=== PATIENT | female | born 1935 | race Caucasian/White ===

== ENCOUNTER 2021-02-27 14:48 | Emergency (ER) | payer MEDICARE, OTHER, SELFPAY ==
[2021-02-27 14:50] VITALS: BP 157/57; PULSE 94; RESP 19; TEMP 37; O2SAT 96; BMI 26.4
--- NOTE | 2021-02-27 15:06 | XR_ITS ---
PROCEDURE: XR CHEST 2V CLINICAL HISTORY: SOB COMPARISON: No exams were available for comparison FINDINGS: The cardiomediastinal silhouette and pulmonary vascularity are within normal limits. The lungs are clear without infiltrates, suspicious nodules, or pleural effusions. No acute bony abnormalities. IMPRESSION: No acute findings. Dictated by: Tevin Valdivia MD 02/27/2021 16:54 Tevin Valdivia MD in [place] 02/27/2021 16:54
--- NOTE | 2021-02-27 15:23 | HMH.EDUTC ---
[facility] [place] Clinical Impression: Acute bronchitis Qualifiers: Bronchitis organism: unspecified organism Qualified Code(s): J20.9 - Acute bronchitis, unspecified Sinusitis Qualifiers: Sinusitis location: unspecified location Chronicity: acute Recurrence: non-recurrent Qualified Code(s): J01.90 - Acute sinusitis, unspecified Disposition: Home, Self-Care Condition on Discharge: Good Instructions: DI for Sinusitis, DI for Acute Bronchitis Additional Instructions: Drink plenty of fluids. Take tylenol or ibuprofen for pain or fever. Take the medications as directed. Follow up with your regular doctor. GO TO THE ER FOR ANY WORSENING SYMPTOMS Prescriptions: guaiFENesin [Mucinex 600mg tablet] 1 - 2 tab PO BIDP PRN #30 tab.er.12h PRN Reason: Congestion Transmission [facility] Benzonatate [Tessalon Perle 100mg Cap] 100 mg PO TIDP PRN #30 cap PRN Reason: Cough Transmission Status: [facility] Azithromycin [Z-Chele 250mg Tab*] 250 mg PO UD DOSE PK #6 tab Transmission Status: [facility] Referrals: Lupillo Boyce [Primary Care Provider] - Time of Disposition: 15:25 Medical Decision Making - Medical Records Medical records reviewed: No: I reviewed the patient's medical records. - Vince Inquiry Pt receiving controlled substance: No Vital Signs: 02/27/21 14:50 02/27/21 15:28 Temperature 98.6 F 98.6 F Temperature Source Oral Pulse Rate 94 H Pulse Rate [Right Brachial] 94 H Respiratory Rate 19 19 Blood Pressure 157/57 H Blood Pressure [Right Arm] 157/57 H Blood Pressure Mean [Right Arm] 90 Blood Pressure Source [Right Arm] Automatic Cuff Blood Pressure Position [Right Arm] Sitting 02 Sat by Pulse Oximetry 96 Oxygen Delivery Method Room Air [facility] [place] - General Stated complaint: cough, congestion Time Seen by Provider: 02/27/21 15:23 Mode of Arrival: Ambulatory Source of Information: Patient Limitations: No Limitations Description of Symptoms (Recalled from Triage Doc. by RN): PATIENT C/O PRODUCTIVE COUGH WITH WHEEZING SINCE THURSDAY. STATES SHE FEELS WORSE AT NIGHT. SHE SAYS SHE FELT LIKE SHE HAD A FEVER AT TIMES, BUT HAS NOT TAKEN HER TEMPERATURE HEENT Symptoms (Recalled from RN notes): No Resp Symptoms (Recalled from RN notes): Yes Skin Symptoms (Recalled from RN notes): No MS Symptoms (Recalled from RN notes): No Functional Status (Recalled from RN notes): WNL - History of Present Illness Provider Complaint: She states that for the past 3 days she has had sinus congestion and a cough. - Related Data Home Medications Medication Instructions Recorded Confirmed Losartan/Hydrochlorothiazide 1 each PO DAILY 02/27/21 02/27/21 [Losartan-Hctz 100-12.5 mg Tab] Pravastatin Sodium [Pravachol] 80 mg PO HS 02/27/21 02/27/21 Previous Rx's Medication Instructions Recorded Azithromycin [Z-Chele 250mg Tab*] 250 mg PO UD DOSE PK #6 tab 02/27/21 Benzonatate [Tessalon Perle 100mg 100 mg PO TIDP PRN #30 cap 02/27/21 Cap] guaiFENesin [Mucinex 600mg tablet] 1 - 2 tab PO BIDP PRN #30 02/27/21 tab.er.12h Allergies Allergy/AdvReac Type Severity Reaction Status Date / Time No Known Allergies Allergy Verified 02/27/21 15:16 - Worker's Comp Is this a Worker's Comp case?: No [facility] History - Hepatitis A Screen Drug use history?: No High risk sexual behaviors?: No History of sexually transmitted infection?: No Currently employed?: No Childcare worker?: No Do you have indoor plumbing?: Yes Do you have electricity?: Yes Attestation statement:: This patient has been screened for Hepatitis A risk factors. I have reviewed the patient's past medical history: Yes - Social History Alcohol Intake: never Occupational Status: other ROS Obtained: Yes All systems reviewed & no additional complaints - Constitutional Constitutional: Denies chills, Denies fever(s), Reports malaise - Integumentary/Br
[2021-02-27 15:28] VITALS: BP 157/57; PULSE 94; RESP 19; TEMP 37; O2SAT 96
== END 2021-02-27 15:30 | disposition home or self-care (01) ==
PROVIDERS: Emergency Provider Nurse Practitioner Family; PCP Family Medicine
DX: J20.9 Acute bronchitis, unspecified (principal); J01.90 Acute sinusitis, unspecified; E78.5 Hyperlipidemia, unspecified; I10 Essential (primary) hypertension; Z79.899 Other long term (current) drug therapy
CPT/HCPCS: G0463; 71046; 99202

== ENCOUNTER 2021-05-18 14:47 | Observation (INO) | payer MEDICARE, OTHER, SELFPAY ==
[2021-05-18] VITALS (9 sets, daily range): BP systolic 113–168; BP diastolic 71–92; PULSE 59–83; RESP 14–18; TEMP 36.8–36.9; O2SAT 94–97; BMI 25.8; BMI 26.1
--- NOTE | 2021-05-18 14:36 | ECG_ITS ---
APPROVED REPORT Exam: Resting ECG HR:87 bpm ECG Measurements Heart Rate 87 AXES NE 246 P 72 QRSd 98 QRS 66 QT 364 T 81 QTc 438 Conclusion Sinus rhythm with 1st degree AV block Anterior infarct, age undetermined Abnormal ECG Electronically signed by : David Rodriguez MD 05/19/2021 17:08:00
--- NOTE | 2021-05-18 14:49 | XR_ITS ---
PROCEDURE INFORMATION: Exam: XR Chest Exam date and time: 05/18/2021 2:49 PM Age: 85 years old Clinical indication: Pain; Chest pressure; Prior surgery; Surgery date: 6+ months; Surgery type: Mastectomy; Additional info: Chest pain TECHNIQUE: Imaging protocol: XR of the chest. Views: 1 view. COMPARISON: CR XR CHEST 2V 02/27/2021 3:05 PM FINDINGS: Lungs: The lungs are hyperinflated, consistent with underlying small airways disease. Atelectatic changes noted within both lung bases. Granulomatous density noted within the right upper lobe. Pleural spaces: There is no evidence of pneumothorax. There are no pleural effusions present. Heart/Mediastinum: Unremarkable. No cardiomegaly. Bones/joints: The thoracic spine demonstrates mild degenerative changes at multiple levels. IMPRESSION: 1. The lungs are hyperinflated, consistent with underlying small airways disease. 2. Atelectatic changes noted within both lung bases.
[2021-05-18 15:39] LABS: Basophils # 0.1 K/mm3 (0-0.2); Eosinophils # 0.1 K/mm3 (0.0-0.4); Eosinophils % 0.9 % (0.1-12.0); Hematocrit 46.5 % (37.0-47.0); Hemoglobin 15.4 g/dL (12.2-16.2); Lymphocytes # 1.6 K/mm3 (0.7-4.5); Lymphocytes % 24.3 % (10-50); Mean Corpuscular Hemoglobin 32.2 pg (27.0-31.2); Mean Corpuscular Volume 97.7 fl (81-99); Mean Platelet Volume 8.3 fl (7.4-10.4); Monocytes # 0.5 K/mm3 (0.1-1.0); Monocytes % 7.1 % (1.7-9.3); Neutrophils # 4.4 K/mm3 (1.8-7.8); Neutrophils % 66.7 % (37.0-80.0); Platelet Count 304 K/mm3 (142-424); Red Blood Count 4.76 M/mm3 (4.20-5.40); Red Cell Distribution Width 13.2 % (11.5-17.5); White Blood Count 6.6 K/mm3 (4.8-10.8)
[2021-05-18 15:48] LABS: Alanine Aminotransferase 26 U/L (12-78); Albumin Level 4.4 g/dl (3.5-5.0); Albumin/Globulin Ratio 1.2 (1.1-1.8); Alkaline Phosphatase 78 U/L (38-126); Anion Gap 14.6 mEq/L (5-15); Aspartate Amino Transferase 35 U/L (14-36); Bilirubin,Total 0.4 mg/dl (0.2-1.3); Blood Urea Nitrogen 12 mg/dl (7-17); Calcium 9.8 mg/dl (8.4-10.2); Carbon Dioxide 29 mmol/L (22.0-30.0); Chloride 101 mmol/L (98-107); Creatinine Clearance Estimated 49 mL/min (50-200); Estimated Glomerular Filt Rate 80 ml/min (>60); GFR (African American) 97 ML/MIN (>60); Globulin 3.7 g/dL (1.3-3.2); Glucose 113 mg/dl (74-100); Potassium 3.6 mmoL/L (3.5-5.1); Sodium 141 mmol/L (136-145); Total Protein,Serum 8.1 g/dl (6.3-8.2)
--- NOTE | 2021-05-18 15:59 | HMH.EDCP ---
ED Disposition Clinical Impression: Unstable angina pectoris Hypertension Qualifiers: Hypertension type: primary hypertension Qualified Code(s): I10 - Essential (primary) hypertension Disposition: Admitted as Observation Condition on Discharge: Good Referrals: Lupillo Boyce [Primary Care Provider] - - Critical Care Critical Care Time: No Attestation: On 05/18/21, the high probability of a clinically significant, sudden or life threatening deterioration of the following system(s) required my full and direct attention, intervention and personal management. The time I documented below is in addition to time spent performing reported procedures but includes the following listed in this critical care notation. Medical Decision Making - Medical Records Medical records reviewed: Yes: I reviewed the patient's medical records. - Vince Inquiry Pt receiving controlled substance: No Vital Signs: 05/18/21 15:30 05/18/21 16:00 05/18/21 16:30 Pulse Rate 82 83 72 Respiratory Rate 18 16 16 Blood Pressure 168/92 H 152/87 H 152/79 H Blood Pressure Mean 105 115 103 02 Sat by Pulse Oximetry 96 97 94 L 05/18/21 17:00 Pulse Rate 64 Respiratory Rate 16 Blood Pressure 141/75 H Blood Pressure Mean 97 02 Sat by Pulse Oximetry 96 - Lab Data Lab results reviewed: Yes: I reviewed the patient's lab results. Lab Results 05/18/21 14:56: WBC 6.6, RBC 4.76, Hgb 15.4, Hct 46.5, MCV 97.7, MCH 32.2 H, MCHC 33.0, RDW 13.2, Plt Count 304, MPV 8.3, Neut % (Auto) 66.7, Lymph % (Auto) 24.3, Jasper % (Auto) 7.1, Eos % (Auto) 0.9, Baso % (Auto) 1.0, Neut # (Auto) 4.4, Lymph # (Auto) 1.6, Jasper # (Auto) 0.5, Eos # (Auto) 0.1, Baso # (Auto) 0.1 05/18/21 14:56: Sodium 141, Potassium 3.6, Chloride 101, Carbon Dioxide 29, Anion Gap 14.6, BUN 12, Creatinine 0.70, Estimated Creat Clear 49, Estimated GFR 80, Est GFR ( Amer) 97, Glucose 113 H, Calcium 9.8, Total Bilirubin 0.4, AST 35, ALT 26, Alkaline Phosphatase 78, Troponin I 0.06 H, Total Protein 8.1, Albumin 4.4, Globulin 3.7 H, Albumin/Globulin Ratio 1.2 05/18/21 15:58: Urine Color Yellow, Urine Appearance Clear, Urine pH 7.0, Ur Specific [place] <= 1.005, Urine Protein Negative, Urine Glucose (UA) Negative, Urine Ketones Negative, Urine Blood Negative, Urine Nitrate Negative, Urine Bilirubin Negative, Urine Urobilinogen 0.2, Ur Leukocyte Esterase Negative, Urine RBC None, Urine WBC None, Ur Squamous Epith Cells 3-5, Urine Bacteria None Result diagrams: 05/18/21 14:56 05/18/21 14:56 Orders (Tests/Meds): ED MEDICATIONS Discontinued Medications Generic Name Dose Route Start Last Admin Trade Name Freq PRN Reason Stop Dose Admin Aspirin 324 mg 05/18/21 14:50 05/18/21 15:03 Aspirin 81mg Chewable Tablet PO 05/18/21 14:51 324 mg ONCE ONE Administration ORDERS Category Date Time Status Troponin I Q3H Lab 05/18/21 18:00 Ordered Troponin I Q3H Lab 05/18/21 21:00 Ordered - Radiology Data #1 Image(s): Chest Image Reviewed: Yes I have reviewed radiologist's interpretation Preliminary Findings: Normal/NAD - ECG Data Tracing #1 Normal Sinus Rhythm: Yes Ischemic changes: non-specific ST-T wave changes ECG compared to prior tracings: there are no prior tracings available for comparison - Physician Consults Physician Consulted: benjamin Reason -: Admission Medical Decision Narrative: pt with unstable angina and will need admit and card eval Chest Pain HPI - General Chief Complaint: Chest Pain Stated Complaint: CHEST PAIN Time Seen by Provider: 05/18/21 15:59 Mode of Arrival: Ambulatory Source of Information: Patient, Medical Record Limitations: No Limitations - History of Present Illness HPI narrative: new onset of ant chest pain/tightness which started yesterday and occurs with min activity but not at rest - has no known card disease but has htn MD complaint: chest pain indicative of cardiac Onset (ago): day(s) Duration: intermitt
[2021-05-18 16:00] LABS: Troponin I 0.06 ng/ml (0.00-0.034)
[2021-05-18 16:30] LABS: Microscopic, Urine URINE MICROSCOPIC (MICROSCOPIC)
[2021-05-18 16:33] LABS: Appearance,Urine CLEAR (Clear); Bilirubin,Urine Negative (Negative); Blood, Urine Negative (Negative); Color,Urine YELLOW (Yellow); Glucose,Urine (UA) Negative (Negative); Ketones,Urine Negative (Negative); Leukocyte Esterase,Urine Negative (Negative); Nitrate,Urine Negative (Negative); Protein,Urine Negative (Negative); Specific Gravity, Urine <= 1.005 (1.005-1.030); Urobilinogen,Urine 0.2 EU/dl (0.2)
[2021-05-18 18:11] LABS: Coronavirus 19, PCR Not Detected (NotDetected); Influenza A, PCR Not Detected (NotDetected); Influenza B, PCR Not Detected (NotDetected)
--- NOTE | 2021-05-18 18:59 | PC.NURSE ---
REPORT TO FLOOR
--- NOTE | 2021-05-18 19:51 | PC.NURSE ---
PT ARRIVED TO FLOOR VIA WW/C FROM ED W/STAFF AT 1950
[2021-05-18 19:54] LABS: Troponin I 0.08 ng/ml (0.00-0.034)
[2021-05-18 22:10] LABS: Troponin I 0.08 ng/ml (0.00-0.034)
[2021-05-19] VITALS (9 sets, daily range): BP systolic 112–148; BP diastolic 53–85; PULSE 50–76; RESP 17–18; TEMP 36.5–36.9; O2SAT 94–99; BMI 26.0
--- NOTE | 2021-05-19 04:03 | PC.NURSE ---
Patient is A&Ox4. She ambulates independently in her room. There is slight traceable edema to her bilateral lower extremities. She has had no complaints this shift. VSS, call light within reach, will continue to monitor.
[2021-05-19 06:56] LABS: Chloride 105 mmol/L (98-107); Potassium 4.2 mmoL/L (3.5-5.1); Sodium 142 mmol/L (136-145)
[2021-05-19 06:59] LABS: Anion Gap 11.2 mEq/L (5-15); Blood Urea Nitrogen 13 mg/dl (7-17); Carbon Dioxide 30 mmol/L (22.0-30.0); Creatinine Clearance Estimated 49 mL/min (50-200); Estimated Glomerular Filt Rate 80 ml/min (>60); GFR (African American) 97 ML/MIN (>60)
[2021-05-19 07:00] LABS: Calcium 9.5 mg/dl (8.4-10.2); Chol/HDL Ratio 2.9 (1-3.5); Cholesterol 192 mg/dl (140-200); Glucose 102 mg/dl (74-100); HDL Cholesterol 67 mg/dl (40-60); Triglycerides 78 mg/dl (30-150); VLDL Cholesterol 16 mg/dL (0-40)
[2021-05-19 07:04] LABS: Basophils # 0.1 K/mm3 (0-0.2); Basophils % 0.7 % (0.1-2.0); Eosinophils # 0.1 K/mm3 (0.0-0.4); Eosinophils % 0.9 % (0.1-12.0); Hematocrit 44.9 % (37.0-47.0); Hemoglobin 14.6 g/dL (12.2-16.2); Lymphocytes # 1.9 K/mm3 (0.7-4.5); Lymphocytes % 27.6 % (10-50); Mean Corpuscular HGB Conc 32.5 g/dL (31.8-35.4); Mean Corpuscular Hemoglobin 31.7 pg (27.0-31.2); Mean Corpuscular Volume 97.6 fl (81-99); Mean Platelet Volume 7.7 fl (7.4-10.4); Monocytes # 0.5 K/mm3 (0.1-1.0); Monocytes % 7.2 % (1.7-9.3); Neutrophils # 4.4 K/mm3 (1.8-7.8); Neutrophils % 63.5 % (37.0-80.0); Platelet Count 299 K/mm3 (142-424); Red Cell Distribution Width 13.2 % (11.5-17.5)
[2021-05-19 07:11] LABS: Direct LDL Cholesterol 92.13 mg/dL (100-129)
--- NOTE | 2021-05-19 08:12 | HMH.HP ---
*Admission Date: 05/18/21 *Chief complaint: Chest pressure *History of present illness: Ms. Davis is an 85-year-old white female with a history of hypertension and hyperlipidemia who presented to the emergency room yesterday with a 2-day history of anterior chest pressure radiating into her back associated with any physical activity. Her pain was relieved with rest. No associated shortness of breath or palpitations. She has no past history of heart disease. Work-up in the emergency room showed slightly elevated troponins with some ST changes in the anterior leads on her EKG. Dr. Ledezma was consulted from the ER and advised admission for observation with likely plans for heart cath tomorrow. Since admission she has had no further episodes of chest pain or pressure. [facility] History Medical History: Reports:: Cancer (Breast), Hyperlipidemia, Hypertension *Have you ever received a pneumonia vaccine?: Yes *Have you received a flu vaccine this season?: No Other Medical History: Reports: Cataracts, Glaucoma Laterality Cases: Left: Mastectomy Other Surgeries: Yes: Hysterectomy-Total - *Social History Last grade of school completed: High school graduate Smoking Status: Never smoker Alcohol Intake: never Substance Use Type: denies use *Occupational Status:: retired Household Members: none *Travel in the last 8 weeks: None Family Hx:: No significant family history Review of Systems - Constitutional Denies anorexia, Denies fatigue - Eyes Denies change in vision - ENT Denies difficulty swallowing, Denies nasal congestion - *Cardiovascular Reports leg swelling (Sometimes in the evening and goes away overnight), Reports other (See HPI) - *Respiratory Denies chest congestion, Denies cough, Denies shortness of breath - *Gastrointestinal Denies abdominal pain, Denies change in bowel habits - *Genitourinary Denies abnormal vaginal bleeding, Denies urinary incontinence - *Musculoskeletal Denies joint swelling, Denies muscle weakness - Integumentary/Breasts Denies hair loss, Denies change in skin color - *Neurologic Denies dizziness, Denies localized weakness, Denies headache(s) - Psychiatric Denies abnormal sleep pattern, Denies anxiety, Denies confusion, Denies depression - Endocrine Denies cold intolerance - Hematologic/Lymphatic Denies easy bruising - Allergic/Immunologic Denies seasonal runny nose Meds Home Medications Medication Instructions Recorded Confirmed Type Losartan/Hydrochlorothiazide 1 each PO DAILY 02/27/21 05/18/21 History [Losartan-Hctz 100-12.5 mg Tab] Pravastatin Sodium [Pravachol] 80 mg PO HS 02/27/21 05/18/21 History Aspirin [Aspirin 81mg chewable 81 mg PO DAILY 05/18/21 05/18/21 History tab] Timolol Maleate/Latanoprost/Pf 1 drp EYE-BOTH BID 05/18/21 05/18/21 History [Timolol 0.5%-Latanopros 0.005%] Allergies Allergy/AdvReac Type Severity Reaction Status Date / Time No Known Allergies Allergy Verified 02/27/21 15:16 Exam Vital signs and Labs for Last 24 Hours: Temp Pulse Resp BP Pulse Ox 98.0 F 76 17 115/68 96 05/19/21 04:00 05/19/21 04:00 05/19/21 04:00 05/19/21 04:00 05/19/21 00:00 Laboratory Results - last 24 hr 05/18/21 14:56: WBC 6.6, RBC 4.76, Hgb 15.4, Hct 46.5, MCV 97.7, MCH 32.2 H, MCHC 33.0, RDW 13.2, Plt Count 304, MPV 8.3, Neut % (Auto) 66.7, Lymph % (Auto) 24.3, Eagle % (Auto) 7.1, Eos % (Auto) 0.9, Baso % (Auto) 1.0, Neut # (Auto) 4.4, Lymph # (Auto) 1.6, Eagle # (Auto) 0.5, Eos # (Auto) 0.1, Baso # (Auto) 0.1 05/18/21 14:56: Sodium 141, Potassium 3.6, Chloride 101, Carbon Dioxide 29, Anion Gap 14.6, BUN 12, Creatinine 0.70, Estimated Creat Clear 49, Estimated GFR 80, Est GFR ( Amer) 97, Glucose 113 H, Calcium 9.8, Total Bilirubin 0.4, AST 35, ALT 26, Alkaline Phosphatase 78, Troponin I 0.06 H, Total Protein 8.1, Albumin 4.4, Globulin 3.7 H, Albumin/Globulin Ratio 1.2 05/18/21 15:58: Urine Color Yellow, Urine Appearance Adrian
--- NOTE | 2021-05-19 13:18 | HMH.PHAINT ---
home medication list clarified using list from [facility]
--- NOTE | 2021-05-19 13:20 | P.CONPHA_ITS ---
[facility] VTE Monitoring - Patient Demographics Admission date: 05/19/21 Report Date: 05/19/21 Time: 13:20 Allergies/Adverse Reactions: Patient Allergies No Known Allergies Allergy (Verified 02/27/21 15:16) Height: 1.68 m Weight: 73.482 kg Patient Problems: Current Active Problems Unstable angina pectoris (Acute) Hypertension (Acute) Dyslipidemia (Acute) Right carotid bruit (Acute) History of breast cancer (Acute) - VTE Risk Labs: VTE Related Lab Results Hgb 14.6 g/dL (12.2-16.2) 05/19/21 06:31 Hct 44.9 % (37.0-47.0) 05/19/21 06:31 Plt Count 299 K/mm3 (142-424) 05/19/21 06:31 BUN 13 mg/dl (7-17) 05/19/21 06:31 Creatinine 0.70 mg/dl (0.52-1.04) 05/19/21 06:31 Estimated Creat Clear 49 mL/min (50-200) 05/19/21 06:31 Was VTE Risk Assessment Performed: Yes VTE Score: 2 VTE Risk Level: Very Low Risk Clinical Trial Participant: No - Prophylaxis VTE Prophylaxis Ordered?: Yes Types of VTE Prophylaxis: TEDS Knee High
--- NOTE | 2021-05-19 17:07 | PC.NURSE ---
pt is AxOx4, has been up in chair t/o shift, remained on room air, no complaints of chest pain or SOA, telemetry shows NSR
[2021-05-20] VITALS (21 sets, daily range): BP systolic 109–177; BP diastolic 52–90; PULSE 50–70; RESP 17–20; TEMP 36.6–36.7; O2SAT 96–100; BMI 25.7
--- NOTE | 2021-05-20 | IR_ITS ---
APPROVED REPORT Patient Location: Inpatient PROCEDURES Left heart catheterization Left ventriculogram Selective coronary angiogram Drug-eluting stent deployment to the mid to distal dominant right coronary INDICATION Unstable angina, Coronary artery disease Informed consent was obtained prior to the procedure. COMPLICATIONS None Estimated Blood Loss: Less than 10 mls TECHNIQUE One percent lidocaine used to anesthetize the right anterior aspect of the wrist. The right radial artery was accessed via the Seldinger technique. A 6 Romanian sheath was placed in the right radial artery. 2.5 mg of verapamil, 800 mcg of nitroglycerin, 1mg Lidocaine and 5000 U Heparin were given through the arterial sheath. A Self-A-r-T catheter was used to perform left heart catheterization left ventriculogram and selective coronary angiogram. At the end the diagnostic angiogram therapeutic heparin was administered giving a therapeutic ACT and the guide catheter was used to intubate the right coronary artery. A Choice PT extra-support wire was placed distally in the right coronary artery and a 3.5 x 38 mm resolute Matthew stent was deployed at 16 bonny reducing the stenosis to 30%. A 3.5 x 12 mm noncompliant balloon was then deployed in the proximal portion of the stent at 24 bonny to post dilate reducing the stenosis to 0%. 600 mcg of nitroglycerin was administered after the stent deployment. FIDELIA II flow was present at the beginning of the procedure with FIDELIA-3 flow at the end of the procedure. At the end the procedure the apparatus was removed the sheath was removed good hemostasis was achieved using TR banding patient was transferred to the postop holding area stable condition ANGIOGRAPHIC RESULTS The left main artery Normal The left anterior descending artery Has proximal and mid vessel 20% stenoses The circumflex artery Is nondominant yet still large and normal The right coronary artery Is a large dominant vessel with a critical proximal to mid vessel greater than 90% stenosis with distal 30 and 40% stenosis The NICHOLSON ventriculogram reveals Hyperdynamic at 75 mmHg The left ventricular end-diastolic pressure 20 mmHg IMPRESSION Critical disease in the proximal to mid dominant right coronary artery Successful stenting of the proximal to mid dominant right coronary critical disease reduced to 0% with 1 drug-eluting stent Hyperdynamic ventricle consistent with hypertensive heart disease Elevated LVEDP consistent with hypertensive heart disease PLAN 1. Dual antiplatelet therapy 2. DARNELL inhibitor plus beta-blockers 3. LDL less than 55 4. Cardiac rehabilitation 5. Avoidance of tobacco Electronically signed by : Maurilio Ledezma MD 05/20/2021 16:36:03
--- NOTE | 2021-05-20 03:15 | PC.NURSE ---
REPORT CALLED FROM BOB TINOCO
--- NOTE | 2021-05-20 03:56 | PC.NURSE ---
REPORT CALLED FROM BOB TINOCO
--- NOTE | 2021-05-20 07:20 | PC.NURSE ---
staff here for echo
--- NOTE | 2021-05-20 08:00 | CA_ITS ---
APPROVED REPORT EXAM: Comprehensive 2D, Doppler, and color-flow Echocardiogram Stock Feeder: Priya Breaux RVT Ht: 5 ft 6 in Wt: 162lbs BSA: 1.83 BP: 115/68 mmHg Indications: CP,HTN,HLD,HX BREAST CA,MASECTOMY ON THE LEFT 2D Dimensions LVOT 2.10 cm (M/F) 1.5-2.5 LA Volume 25.70 mL LA Volume Index 14.04 mL/m2 (M/F) 16-34 M-Mode Dimensions RVDd 1.64 cm (0.9-2.6) LA Diam 4.20 cm (1.9-4.0) LVDd 4.52 cm (3.5-5.7) Ao Diam 2.77 cm (2.0-3.7) LVDs 3.08 cm (3.5-5.7) IVSd 0.87 cm (0.6-1.1) PWd 1.00 cm (0.6-1.1) EF (Teich) 60.10% FS 31.90% EDV (Teich) 93.40 mL TAPSE 2.22 (<1.7) ESV (Teich) 37.30 mL LV Diastology E Decel Time 227.00 (160-240 msec) E/A Ratio 1.1 MED E' 5.40 (< 7 cm/sec) E'/MED E' Ratio 18.85 (>14) LAT E' 7.80 (<10 cm/sec) E/LAT E' Ratio 13.05 (>14) Aortic Valve AO Peak GR. 7.30 mmHg Mitral Valve MV E Max Dharmesh. 102.00 (40-130 cm/s) MV A Velocity 91.00 (40-130 cm/s) E/A Ratio 1.12 MV Decel. Time 227.00 (160-240 ms) MV PHT 66.00 ms Pulmonary Valve PV Peak Velocity 71.00 (50-150 cm/s) Tricuspid Valve TR P. Velocity 299.00 cm/s RAP Estimate 10.00 mmHg RVSP 45.90 mmHg Left Ventricle Left atrium is mildly enlarged, left ventricle is normal size, mild concentric left ventricle hypertrophy, visually estimated ejection fraction 55% with no regional wall motion abnormality, grade 1 diastolic dysfunction seen with tissue Doppler evidence of raise left atrial pressure. Right Ventricle Right atrium and right ventricle mildly enlarged with normal contractility. Aortic Valve Aortic valve is thickened and calcified without Doppler evidence of aortic stenosis or aortic insufficiency. Mitral Valve Mitral valve leaflets are minimally thickened, there is mild mitral regurgitation. Tricuspid Valve Tricuspid valve is minimally thickened, there is mild tricuspid regurgitation. Tricuspid regurgitation jet velocity is inadequate for calculation of the right ventricular systolic pressure. Pulmonic Valve Pulmonic valve is poorly visualized. Great Vessels Aortic root is normal size. Inferior vena cava is normal size with normal inspiratory collapse. Pericardium No significant pericardial effusion noted. Conclusion 1. Mild biatrial enlargement, normal left ventricular size, mild concentric left ventricular hypertrophy, visually estimated ejection fraction 55% with no regional wall motion abnormality, grade 1 diastolic dysfunction seen with tissue Doppler evidence of raise left atrial pressure. 2. Mildly enlarged right ventricle with normal contractility. 3. Mild mitral and tricuspid regurgitation. 4. No significant pericardial effusion noted, inferior vena cava is normal size with normal inspiratory collapse. Electronically signed by : Yusuf Wetzel MD 05/21/2021 07:13:53
--- NOTE | 2021-05-20 08:29 | HMH.ACPN2 ---
Internal Medicine - PN: Subj *Date: 05/20/21 *Time: 22:31 Interval history: Rested fairly well but did have some chest pressure when up to the BR during the night. Exam Vital signs and Labs for Last 24 Hours: Temp Pulse Resp BP Pulse Ox 98.1 F 65 18 173/87 H 96 05/20/21 08:00 05/20/21 17:05 05/20/21 17:05 05/20/21 17:05 05/20/21 17:05 I & O for Last 24 hours: Intake & Output 05/18/21 05/19/21 05/20/21 05/21/21 11:59 11:59 11:59 11:59 Intake Total 480 / 480 1840 / 1840 Balance 480 / 480 1840 / 1840 Weight 162 lb 160 lb Narrative: Alert and oriented. Lungs are clear. Heart is regular. Extremities no edema. Assessment and Plan (1) Non-STEMI (non-ST elevated myocardial infarction) Status: Acute Category: Medical Code(s): I21.4 - Non-ST elevation (NSTEMI) myocardial infarction (2) Unstable angina pectoris Status: Resolved Category: Medical Code(s): I20.0 - Unstable angina (3) Hypertension Status: Acute Qualifiers: Hypertension type: primary hypertension Qualified Code(s): I10 - Essential (primary) hypertension Category: Medical Code(s): I10 - Essential (primary) hypertension (4) Dyslipidemia Status: Chronic Category: Medical Code(s): E78.5 - Hyperlipidemia, unspecified (5) History of breast cancer Status: Chronic Category: Medical Code(s): Z85.3 - Personal history of malignant neoplasm of breast (6) Abnormal EKG Status: Acute Category: Medical Code(s): R94.31 - Abnormal electrocardiogram [ECG] [EKG] (7) Right carotid bruit Status: Acute Category: Medical Code(s): R09.89 - Other specified symptoms and signs involving the circulatory and respiratory systems - Assessment and plan all Dx Assessment and Plan for all problems:: Awaiting cardiology consult with likely plan for heart cath today.
--- NOTE | 2021-05-20 10:41 | HMH.CNCARD ---
History of Present Illness Consult date: 05/20/21 Requesting physician: Manny Solares Consult reason: chest pain Chief complaint: chest pain History of present illness: This is an 85-year-old white female who presented to the emergency department with complaints of chest pain. The patient does have a history of hypertension and hyperlipidemia. She states that her chest pain started approximately 2 days prior to admission. She describing a substernal chest pressure that radiates into her back. This is with exertion, even very minimal exertion. It improves with rest. It is associated with nausea and diaphoresis at times. She denies any associated shortness of breath. The patient states that the pain is about a 7 out of 10 in intensity. The patient denies having symptoms like this before. She denies having any cardiac history. The patient denies any fever, chills, vomiting, diarrhea, PND or orthopnea. [facility] History I have reviewed the patient's past medical history: Yes Medical History: Reports:: Cancer (Breast), Hyperlipidemia, Hypertension *Have you ever received a pneumonia vaccine?: Yes *Have you received a flu vaccine this season?: No Other Medical History: Reports: Cataracts, Glaucoma Laterality Cases: Left: Mastectomy Other Surgeries: Yes: Hysterectomy-Total - *Social History Last grade of school completed: High school graduate Smoking Status: Never smoker Alcohol Intake: never Substance Use Type: denies use *Occupational Status:: retired Household Members: none *Travel in the last 8 weeks: None Family Hx:: No significant family history Meds Home Medications Medication Instructions Recorded Confirmed Type Losartan/Hydrochlorothiazide 1 each PO DAILY 02/27/21 05/18/21 History [Losartan-Hctz 100-12.5 mg Tab] Pravastatin Sodium [Pravachol] 80 mg PO HS 02/27/21 05/18/21 History Aspirin [Aspirin 81mg chewable 81 mg PO DAILY 05/18/21 05/18/21 History tab] Timolol Maleate/Latanoprost/Pf 1 drp EYE-BOTH BID 05/18/21 05/18/21 History [Timolol 0.5%-Latanopros 0.005%] Allergies Allergy/AdvReac Type Severity Reaction Status Date / Time No Known Allergies Allergy Verified 02/27/21 15:16 Exam Vital signs and Labs for Last 24 Hours: Temp Pulse Resp BP Pulse Ox 98.1 F 67 18 158/81 H 98 05/20/21 08:00 05/20/21 08:00 05/20/21 08:00 05/20/21 08:00 05/20/21 08:00 I & O for Last 24 hours: Intake & Output 05/17/21 05/18/21 05/19/21 05/20/21 23:59 23:59 23:59 23:59 Intake Total 1200 / 1200 1120 / 1120 Balance 1200 / 1200 1120 / 1120 Weight 162 lb 162 lb 160 lb Narrative: EKG is sinus rhythm with first-degree AV block and a rate of 87. There is anterior MD pattern with ST depression in inferior leads. - Constitutional no acute distress, average body habitus - *Routine HEENT Exam Head: Present: normocephalic, atraumatic Eye: Present: EOMI, PERRL ENT: Present: mucous membranes moist - *Routine Neck Exam Present: supple, full ROM, normal carotid upstroke. Absent: JVD, carotid bruit, lymphadenopathy - *Routine Respiratory Exam Present: CTA bilaterally - *Routine Cardiovascular Exam Present: RRR, Normal S1, Normal S2. Absent: murmur - *Routine Abdominal Exam Present: soft, normoactive bowel sounds. Absent: tenderness, distended - *Routine Extremities Exam Present: full ROM, pulses intact, normal capillary refill. Absent: cyanosis, clubbing, edema - *Routine Skin Exam Present: intact, warm. Absent: erythema, rash - *Routine Neurological Exam Present: alert, oriented X3, CN II-XII intact. Absent: sensory deficit, motor deficit - Routine Psychiatric Exam Present: normal affect, normal thought process Review of Systems - Review of Systems Review of systems:: pertinent systems reviewed and negative unless documented below - *Cardiovascular Reports chest pain, Reports chest pain with activity, Reports excessive sweating Comments: Radiates
--- NOTE | 2021-05-20 12:00 | PC.NURSE ---
Still awaiting to be taken to petroleum laboratory technician for procedure. Remains NPO. NS continues infusing at 50ml/hr.
--- NOTE | 2021-05-20 14:12 | PC.NURSE ---
Assisted up to chair, call light in reach. No complaints voiced.
--- NOTE | 2021-05-20 14:30 | PC.NURSE ---
Pt assisted up to sit in chair. Still awaiting procedure.
--- NOTE | 2021-05-20 15:56 | PC.NURSE ---
Pt taken to [facility] via w/c with [facility] staff nurse.
--- NOTE | 2021-05-20 17:10 | PC.NURSE ---
Report received from Enedelia (Technical Services Representative RN). Pt had stent placed in right coronary artery.
--- NOTE | 2021-05-20 17:20 | PC.NURSE ---
Pt returned back to room from orthodontic laboratory technician via stretcher and staff x2.
[2021-05-21 00:16] VITALS: BP 115/65; PULSE 62; RESP 18; TEMP 36.7; O2SAT 99
--- NOTE | 2021-05-21 02:36 | PC.NURSE ---
late entry 05/20/21 23:00 pt's pressure device completely deflated and removed. Site unremarkable with the exception of a small bruise above where pressure device was applied. No change to size of bruise noted. Gauze and tegaderm applied. 00:00 Site remains cdi with bruising unchanged. 02:30 Site remains cdi with bruising unchanged.
--- NOTE | 2021-05-21 05:45 | PC.NURSE ---
04:10 Pt has rested well this shift. No acute changes noted to assessment. Vital signs remain stable as charted. Right radial dressing remains CDI. Will continue to monitor.
[2021-05-21 05:49] VITALS: BP 115/63; PULSE 62; RESP 18; TEMP 36.7; O2SAT 99
[2021-05-21 07:19] LABS: Basophils # 0.1 K/mm3 (0-0.2); Basophils % 0.7 % (0.1-2.0); Eosinophils # 0.1 K/mm3 (0.0-0.4); Eosinophils % 1.3 % (0.1-12.0); Hematocrit 41.2 % (37.0-47.0); Hemoglobin 13.5 g/dL (12.2-16.2); Lymphocytes # 1.9 K/mm3 (0.7-4.5); Lymphocytes % 25.6 % (10-50); Mean Corpuscular HGB Conc 32.7 g/dL (31.8-35.4); Mean Corpuscular Hemoglobin 31.8 pg (27.0-31.2); Mean Corpuscular Volume 97.2 fl (81-99); Mean Platelet Volume 8.4 fl (7.4-10.4); Monocytes # 0.5 K/mm3 (0.1-1.0); Neutrophils # 4.9 K/mm3 (1.8-7.8); Neutrophils % 65.5 % (37.0-80.0); Platelet Count 238 K/mm3 (142-424); Red Blood Count 4.24 M/mm3 (4.20-5.40); Red Cell Distribution Width 13.4 % (11.5-17.5); White Blood Count 7.5 K/mm3 (4.8-10.8)
--- NOTE | 2021-05-21 07:30 | P.PN_ITS ---
Internal Medicine - PN: Subj *Date: 05/21/21 *Time: 07:30 Interval history: She did well overnight. No new complaints this morning. Results of heart cath reviewed with patient. She is eager to go home. Exam Vital signs and Labs for Last 24 Hours: Temp Pulse Resp BP Pulse Ox 98.0 F 74 18 145/77 H 99 05/21/21 08:00 05/21/21 08:00 05/21/21 08:00 05/21/21 08:00 05/21/21 10:15 Laboratory Results - last 24 hr 05/20/21 16:36: Activated Clotting Time 398 H* 05/21/21 06:41: WBC 7.5, RBC 4.24, Hgb 13.5, Hct 41.2, MCV 97.2, MCH 31.8 H, MCHC 32.7, RDW 13.4, Plt Count 238, MPV 8.4, Neut % (Auto) 65.5, Lymph % (Auto) 25.6, [place] % (Auto) 7.0, Eos % (Auto) 1.3, Baso % (Auto) 0.7, Neut # (Auto) 4.9, Lymph # (Auto) 1.9, [place] # (Auto) 0.5, Eos # (Auto) 0.1, Baso # (Auto) 0.1 05/21/21 06:41: Sodium 140, Potassium 3.9, Chloride 108 H, Carbon Dioxide 25, Anion Gap 10.9, BUN 16, Creatinine 0.70, Estimated Creat Clear 49, Estimated GFR 80, Est GFR ( Amer) 97, Glucose 89, Calcium 8.9 I & O for Last 24 hours: Intake & Output 05/19/21 05/20/21 05/21/21 05/22/21 11:59 11:59 11:59 11:59 Intake Total 480 / 480 1840 / 1840 Balance 480 / 480 1840 / 1840 Weight 162 lb 160 lb Narrative: She is sitting on the side of the bed eating her breakfast. She is alert and oriented. Color is good. Lungs are clear. Heart is regular. Extremities no edema. Assessment and Plan (1) Non-STEMI (non-ST elevated myocardial infarction) Status: Acute Category: Medical Code(s): I21.4 - Non-ST elevation (NSTEMI) myocardial infarction (2) Unstable angina pectoris Status: Resolved Category: Medical Code(s): I20.0 - Unstable angina (3) Hypertension Status: Acute Qualifiers: Hypertension type: primary hypertension Qualified Code(s): I10 - Essential (primary) hypertension Category: Medical Code(s): I10 - Essential (primary) hypertension (4) Dyslipidemia Status: Acute Category: Medical Code(s): E78.5 - Hyperlipidemia, unspecified (5) History of breast cancer Status: Acute Category: Medical Code(s): Z85.3 - Personal history of malignant neoplasm of breast (6) Abnormal EKG Status: Acute Category: Medical Code(s): R94.31 - Abnormal electrocardiogram [ECG] [EKG] (7) CAD (coronary artery disease) Status: Chronic Category: Medical Code(s): I25.10 - Atherosclerotic heart disease of [place] coronary artery without angina pectoris (8) Stented coronary artery Status: Chronic Category: Surgical Code(s): Z95.5 - Presence of coronary angioplasty implant and graft - Assessment and plan all Dx Assessment and Plan for all problems:: Doing well post cath and stent placement. She appears ready for discharge. Will clarify her discharge medications with the cardiology service.
[2021-05-21 07:36] LABS: Chloride 108 mmol/L (98-107); Potassium 3.9 mmoL/L (3.5-5.1); Sodium 140 mmol/L (136-145)
[2021-05-21 07:39] LABS: Anion Gap 10.9 mEq/L (5-15); Blood Urea Nitrogen 16 mg/dl (7-17); Calcium 8.9 mg/dl (8.4-10.2); Carbon Dioxide 25 mmol/L (22.0-30.0); Creatinine Clearance Estimated 49 mL/min (50-200); Estimated Glomerular Filt Rate 80 ml/min (>60); GFR (African American) 97 ML/MIN (>60); Glucose 89 mg/dl (74-100)
[2021-05-21 08:00] VITALS: BP 145/77; PULSE 74; RESP 18; TEMP 36.7; O2SAT 99
--- NOTE | 2021-05-21 09:47 | HMH.PNCARD ---
Subjective Date: 05/21/21 Time: 10:15 Principal diagnosis: non-stemi Interval history: This is an 85-year-old female who presented to the emergency department with complaints of chest pain. The patient was having symptoms consistent with unstable angina. She had an elevated troponin consistent with a non-ST elevation myocardial infarction. The patient underwent left cardiac catheterization yesterday with stenting to her right coronary artery. She tolerated the procedure well. This morning she denies any chest pain or pressure. She denies any shortness of breath or edema. She denies any fever, chills, nausea, vomiting, diarrhea, PND or orthopnea. LHC shows: The left main artery Normal The left anterior descending artery Has proximal and mid vessel 20% stenoses The circumflex artery Is nondominant yet still large and normal The right coronary artery Is a large dominant vessel with a critical proximal to mid vessel greater than 90% stenosis with distal 30 and 40% stenosis The NICHOLSON ventriculogram reveals Hyperdynamic at 75 mmHg The left ventricular end-diastolic pressure 20 mmHg IMPRESSION Critical disease in the proximal to mid dominant right coronary artery Successful stenting of the proximal to mid dominant right coronary critical disease reduced to 0% with 1 drug-eluting stent Hyperdynamic ventricle consistent with hypertensive heart disease Elevated LVEDP consistent with hypertensive heart disease PLAN 1. Dual antiplatelet therapy 2. DARNELL inhibitor plus beta-blockers 3. LDL less than 55 4. Cardiac rehabilitation 5. Avoidance of tobacco Exam Vital signs and Labs for Last 24 Hours: Temp Pulse Resp BP Pulse Ox 98.0 F 62 18 115/63 99 05/21/21 05:49 05/21/21 05:49 05/21/21 05:49 05/21/21 05:49 05/21/21 05:49 Laboratory Results - last 24 hr 05/21/21 06:41: WBC 7.5, RBC 4.24, Hgb 13.5, Hct 41.2, MCV 97.2, MCH 31.8 H, MCHC 32.7, RDW 13.4, Plt Count 238, MPV 8.4, Neut % (Auto) 65.5, Lymph % (Auto) 25.6, [place] % (Auto) 7.0, Eos % (Auto) 1.3, Baso % (Auto) 0.7, Neut # (Auto) 4.9, Lymph # (Auto) 1.9, [place] # (Auto) 0.5, Eos # (Auto) 0.1, Baso # (Auto) 0.1 05/21/21 06:41: Sodium 140, Potassium 3.9, Chloride 108 H, Carbon Dioxide 25, Anion Gap 10.9, BUN 16, Creatinine 0.70, Estimated Creat Clear 49, Estimated GFR 80, Est GFR ( Amer) 97, Glucose 89, Calcium 8.9 I & O for Last 24 hours: Intake & Output 05/18/21 05/19/21 05/20/21 05/21/21 23:59 23:59 23:59 23:59 Intake Total 1200 / 1200 1120 / 1120 Balance 1200 / 1200 1120 / 1120 Weight 162 lb 162 lb 160 lb Narrative: Echo shows: 1. Mild biatrial enlargement, normal left ventricular size, mild concentric left ventricular hypertrophy, visually estimated ejection fraction 55% with no regional wall motion abnormality, grade 1 diastolic dysfunction seen with tissue Doppler evidence of raise left atrial pressure. 2. Mildly enlarged right ventricle with normal contractility. 3. Mild mitral and tricuspid regurgitation. 4. No significant pericardial effusion noted, inferior vena cava is normal size with normal inspiratory collapse. - Constitutional no acute distress, average body habitus - *Routine HEENT Exam Head: Present: normocephalic, atraumatic Eye: Present: EOMI, PERRL ENT: Present: mucous membranes moist - *Routine Neck Exam Present: supple, full ROM, normal carotid upstroke. Absent: JVD, carotid bruit, lymphadenopathy - *Routine Respiratory Exam Present: CTA bilaterally - *Routine Cardiovascular Exam Present: RRR, Normal S1, Normal S2. Absent: murmur - *Routine Abdominal Exam Present: soft, normoactive bowel sounds. Absent: tenderness, distended - *Routine Extremities Exam Present: full ROM, pulses intact, normal capillary refill. Absent: cyanosis, clubbing, edema - *Routine Skin Exam Present: intact, warm. Absent: erythema, rash - *Routine Neurological Exam Present: alert, oriented X3, CN II-XII intact. Absent: senso
--- NOTE | 2021-05-21 09:55 | INFXCTL.NOTE ---
Hugo (cardiology) here to see pt.
--- NOTE | 2021-05-21 09:56 | PC.NURSE ---
Pt's telemetry being monitored by 2nd floor [facility]
[2021-05-21 10:15] VITALS: O2SAT 99
--- NOTE | 2021-05-21 14:01 | HMH.PHACLD ---
Jannet Davis has received discharge medication counseling on the following medications: PATIENT DISCHARGE WITH SCRIPTS FOR ATORVASTATIN 40 MG HS, BISOPROLOL 5 MG DAILY, AND CLOPIDOGREL 75 MG DAILY. PATIENT IS ALREADY TAKING ASPIRIN 81 MG DAILY AND LOSARTAN 100 MG DAILY ALONG WITH HCTZ 12.5 MG DAILY. STOPPING PRAVASTATIN 80 MG HS.
[2021-05-21 14:04] LABS: CATHL Activated Clotting Time 398 SEC (74-125)
--- NOTE | 2021-05-25 18:28 | HMH.DCSUM ---
General - General Admission date:: 05/18/21 <Manny Solares - 07/15/21 17:31> 05/18/21 <Susy Mi - 05/25/21 18:47> Discharge date: 05/21/21 <Susy Mi - 05/25/21 18:47> HPI HPI: Ms. Davis is an 85-year-old white female with a history of hypertension and hyperlipidemia who presented to the emergency room with a 2-day history of anterior chest pressure radiating into her back associated with any physical activity. Her pain was relieved with rest. No associated shortness of breath or palpitations. She had no past history of heart disease. Work-up in the emergency room showed slightly elevated troponins with some ST changes in the anterior leads on her EKG. Dr. Ledezma was consulted from the ER and advised admission for observation with likely plans for heart cath tomorrow. Since admission she had no further episodes of chest pain or pressure. <Susy Mi - 05/25/21 18:47> Hospital Course Hospital Course: Patient was admitted for cardiac work-up. Dr. Ledezma added a beta-lisette to her med regime. Cardiology did see her and felt that she had symptoms consistent with unstable angina. She did have an elevated troponin as well as abnormal EKG consistent with a non-ST elevation myocardial infarction. Thus she had a Left heart cath which did reveal critical disease in the proximal to mid dominant right coronary artery with Successful stenting of the proximal to mid dominant right coronary critical disease reduced to 0% with stent. Patient tolerated the procedure well. On 05/21/2021 patient was stable for discharge. She will have a follow-up in 1 week with cardiology as well as a follow-up with Dr. Solares. Cardiac meds at discharge were aspirin 81 mg daily, Plavix 75 mg daily, Norvasc 5 mg daily, bisoprolol 5 mg daily and Lipitor 40 mg daily. She was to continue with her losartan/hydrochlorothiazide. <Susy Mi - 05/25/21 18:47> Objective Vital signs: Temp Pulse Resp BP Pulse Ox 98.0 F 74 18 145/77 H 99 05/21/21 08:00 05/21/21 08:00 05/21/21 08:00 05/21/21 08:00 05/21/21 10:15 <Manny Solares - 07/15/21 17:31> Temp Pulse Resp BP Pulse Ox 98.0 F 74 18 145/77 H 99 05/21/21 08:00 05/21/21 08:00 05/21/21 08:00 05/21/21 08:00 05/21/21 10:15 <Susy Mi - 05/25/21 18:47> Narrative: Exam Vital signs and Labs for Last 24 Hours: Temp Pulse Resp BP Pulse Ox 98.0 F 74 18 145/77 H 99 05/21/21 08:00 05/21/21 08:00 05/21/21 08:00 05/21/21 08:00 05/21/21 10:15 Laboratory Results - last 24 hr 05/20/21 16:36: Activated Clotting Time 398 H* 05/21/21 06:41: WBC 7.5, RBC 4.24, Hgb 13.5, Hct 41.2, MCV 97.2, MCH 31.8 H, MCHC 32.7, RDW 13.4, Plt Count 238, MPV 8.4, Neut % (Auto) 65.5, Lymph % (Auto) 25.6, [place] % (Auto) 7.0, Eos % (Auto) 1.3, Baso % (Auto) 0.7, Neut # (Auto) 4.9, Lymph # (Auto) 1.9, [place] # (Auto) 0.5, Eos # (Auto) 0.1, Baso # (Auto) 0.1 05/21/21 06:41: Sodium 140, Potassium 3.9, Chloride 108 H, Carbon Dioxide 25, Anion Gap 10.9, BUN 16, Creatinine 0.70, Estimated Creat Clear 49, Estimated GFR 80, Est GFR ( Amer) 97, Glucose 89, Calcium 8.9 I & O for Last 24 hours: Intake & Output 05/19/21 05/20/21 05/21/21 05/22/21 11:59 11:59 11:59 11:59 Intake Total 480 / 480 1840 / 1840 Balance 480 / 480 1840 / 1840 Weight 162 lb 160 lb Narrative: She is sitting on the side of the bed eating her breakfast. She is alert and oriented. Color is good. Lungs are clear. Heart is regular. Extremities no edema. <HiwotSusy - 05/25/21 18:47> Results Completed studies during hospitalization [Text1]: 05/18/2021 CXR IMPRESSION: 1. The lungs are hyperinflated, consistent with underlying small airways disease. 2. Atelectatic changes noted within both lung bases. 05/20/2021 ECHO Conclusion 1. Mild biatrial enlargement, normal left ventricular size, mild concentric left ventricu
== END 2021-05-21 15:25 | disposition home or self-care (01) ==
LOC: ER 15:32 → 2ND 17:31 → OB 05-20 03:07
PROVIDERS: Internal Medicine; Nurse Practitioner Family; Admitting Provider Family Medicine; Emergency Provider Emergency Medicine; PCP Family Medicine; Visit Provider Family Medicine
DX: I25.110 Atherosclerotic heart disease of native coronary artery with unstable angina pectoris (principal); Z20.822 Contact with and (suspected) exposure to COVID-19; I10 Essential (primary) hypertension; E78.5 Hyperlipidemia, unspecified; I21.4 Non-ST elevation (NSTEMI) myocardial infarction
CPT/HCPCS: G0378; 36415; 71045; 80048; 80053; 80061; 81001; 83735; 84484; 85025; 85347; 92928; 93005; 93306; 93458; 99152; 99283; C1725; C1769; C1876; C9600; J1644; Q9967; U0003

== ENCOUNTER → 2021-05-28 08:49 | Outpatient (CLI) | payer MEDICARE, OTHER, SELFPAY ==
[2021-05-28 09:22] LABS: Hematocrit 45.3 % (37.0-47.0); Hemoglobin 14.8 g/dL (12.2-16.2)
[2021-05-28 11:09] LABS: Blood Urea Nitrogen 14 mg/dl (7-17); Estimated Glomerular Filt Rate 69 ml/min (>60); GFR (African American) 83 ML/MIN (>60)
== END ==
PROVIDERS: Visit Provider Internal Medicine
DX: I25.10 Atherosclerotic heart disease of native coronary artery without angina pectoris (principal); Z95.5 Presence of coronary angioplasty implant and graft
CPT/HCPCS: 36415; 82565; 84520; 85014; 85018

== ENCOUNTER → 2021-12-31 08:35 | Outpatient (CLI) | payer MEDICARE, OTHER, SELFPAY ==
[2021-12-31 14:29] LABS: Alanine Aminotransferase 28 U/L (12-78); Albumin/Globulin Ratio 1.4 (1.1-1.8); Alkaline Phosphatase 79 U/L (38-126); Anion Gap 10.3 mEq/L (5-15); Aspartate Amino Transferase 32 U/L (14-36); Bilirubin,Total 0.9 mg/dl (0.2-1.3); Blood Urea Nitrogen 15 mg/dl (7-17); Calcium 9.7 mg/dl (8.4-10.2); Carbon Dioxide 30 mmol/L (22.0-30.0); Chloride 103 mmol/L (98-107); Chol/HDL Ratio 3.1 (1-3.5); Cholesterol 168 mg/dl (140-200); Estimated Glomerular Filt Rate 80 ml/min (>60); GFR (African American) 96 ML/MIN (>60); Globulin 2.8 g/dL (1.3-3.2); Glucose 101 mg/dl (74-100); HDL Cholesterol 54 mg/dl (40-60); Potassium 4.3 mmoL/L (3.5-5.1); Sodium 139 mmol/L (136-145); Total Protein,Serum 6.8 g/dl (6.3-8.2); Triglycerides 99 mg/dl (30-150); VLDL Cholesterol 20 mg/dL (0-40)
[2021-12-31 14:40] LABS: Direct LDL Cholesterol 80.14 mg/dL (100-129)
== END ==
PROVIDERS: Visit Provider Family Medicine
DX: I25.10 Atherosclerotic heart disease of native coronary artery without angina pectoris (principal); I10 Essential (primary) hypertension; E78.5 Hyperlipidemia, unspecified
CPT/HCPCS: 36415; 80053; 80061

== ENCOUNTER → 2022-03-14 14:36 | Outpatient (CLI) | payer MEDICARE, OTHER, SELFPAY ==
--- NOTE | 2022-03-14 14:43 | XR_ITS ---
FINAL REPORT CLINICAL HISTORY: Pt states that her legs and feet sometimes become numb when standing and the pain has increased over the last month FINDINGS: 5 views of the lumbar spine were obtained. There is no evidence of fracture or dislocation. There is mild leftward curvature. There is mild anterolisthesis of L3 on L4 and L4 on L5. There are moderate degenerative changes noted. Mild vascular calcifications are seen. IMPRESSION: Degenerative changes with mild anterolisthesis as described above. Reviewed, Interpreted and Dictated by Waqar Jesus III, MD Transcribed by Lina Lobo Authenticated and [facility]
--- NOTE | 2022-03-14 14:43 | XR_ITS ---
FINAL REPORT CLINICAL HISTORY: Pt states that the pain in her right shoulder has increased over the last 6 weeks. FINDINGS: RIGHT SHOULDER Two views demonstrate no acute fracture or dislocation. There is mild acromioclavicular and mild glenohumeral joint degenerative change. The visualized bony structures are well aligned. No soft tissue abnormality is seen. IMPRESSION: Degenerative changes with no acute process. Reviewed, Interpreted and Dictated by Waqar Jesus III, MD Transcribed by Lina Lobo Authenticated and [facility]
== END ==
PROVIDERS: PCP Family Medicine; Visit Provider Family Medicine
DX: R22.31 Localized swelling, mass and lump, right upper limb (principal); M48.061 Spinal stenosis, lumbar region without neurogenic claudication
CPT/HCPCS: 72110; 73030

== ENCOUNTER → 2022-04-03 08:49 | Outpatient (CLI) | payer MEDICARE, OTHER, SELFPAY ==
--- NOTE | 2022-04-03 08:53 | XR_ITS ---
FINAL REPORT CLINICAL HISTORY: shoulder pain COMPARISON: 03/14/2022 FINDINGS: RIGHT SHOULDER Three views demonstrate no acute fracture or dislocation. There is mild hypertrophic change of the acromioclavicular joint. The soft tissues are unremarkable. IMPRESSION: Mild hypertrophic change of the acromioclavicular joint. Reviewed, Interpreted and Dictated by Keron Osuna MD Transcribed by Tasneem Silva Authenticated and [facility]
== END ==
PROVIDERS: PCP Family Medicine; Visit Provider Orthopaedic Surgery
DX: M25.511 Pain in right shoulder (principal)
CPT/HCPCS: 73030

== ENCOUNTER → 2022-06-06 11:39 | Outpatient (CLI) | payer MEDICARE, OTHER, SELFPAY ==
--- NOTE | 2022-06-06 11:39 | US_ITS ---
FINAL REPORT CLINICAL HISTORY: leg numbness FINDINGS: ANKLE-BRACHIAL PRESSURE INDICES Pressure indices are as follows: RIGHT LOWER EXTREMITY: Ankle-brachial pressure index: 1.1 Comments: Normal LEFT LOWER EXTREMITY: Ankle-brachial pressure index: 1.0 Comments: Normal CONCLUSION: No evidence of significant obstructive peripheral vascular disease of the lower extremities Reviewed, Interpreted and Dictated by Waqar Jesus III, MD Transcribed by Tasneem Silva Authenticated and [facility]
== END ==
PROVIDERS: PCP Family Medicine; Visit Provider Nurse Practitioner Family
DX: R09.89 Other specified symptoms and signs involving the circulatory and respiratory systems (principal); R20.0 Anesthesia of skin; Z95.5 Presence of coronary angioplasty implant and graft
CPT/HCPCS: 93923

== ENCOUNTER → 2022-08-25 17:07 | Outpatient (CLI) | payer MEDICARE, OTHER, SELFPAY ==
--- NOTE | 2022-08-25 17:08 | MR_ITS ---
PROCEDURE INFORMATION: Exam: MR Lumbar Spine Without Contrast Exam date and time: 08/25/2022 5:12 PM Age: 86 years old Clinical indication: Low back pain; Additional info: Neurogenic claudication. Intermittent bilateral feet pain and tingling. Symptoms x4-5months. TECHNIQUE: Imaging protocol: Magnetic resonance imaging of the lumbar spine without contrast. COMPARISON: CR XR LUMBAR SPINE MIN 4V 03/14/2022 2:56 PM FINDINGS: Bones/joints: Degenerative anterolisthesis of L4 over L5 is re-identified. Vertebral alignment is otherwise maintained. The pedicles are developmentally short. There is preservation of vertebral body heights. Focal hemangioma is noted at T12 L5 and S1 vertebrae. Spinal cord: Conus is unremarkable. Coiling of cauda equina nerve roots from extrinsic effect at L2-L3, L3-L4, and L4-L5 level T12-L1: Diffuse disc bulge, and facet arthropathy without significant spinal canal or neural foramina narrowing. L1-L2: Focal annular tear, diffuse disc bulge and facet arthropathy produce moderate spinal canal stenosis. There is moderate bilateral neural foraminal narrowing L2-L3: Diffuse disc bulge, central disc protrusion and facet arthropathy produce severe spinal canal stenosis. There is severe bilateral neural foraminal stenosis L3-L4: Diffuse disc bulge facet arthropathy and ligamentum flavum redundancy produce severe canal stenosis. There is severe bilateral neural foramina narrowing. L4-L5: Uncovering of the disc, diffuse disc bulge and facet arthropathy produce severe spinal canal stenosis. There is severe right mild left neural foraminal narrowing L5-S1: Diffuse disc bulge, and facet arthropathy produce moderate spinal canal stenosis. There is mild bilateral neural foraminal narrowing Soft tissues: Unremarkable. Kidneys and ureters: 1 cm right renal cyst noted IMPRESSION: Developmentally short pedicles. Multilevel degenerative changes most significant for severe spinal canal stenosis at L2-L3, L3-L4, and L4-L5 level. Severe bilateral neural foramina narrowing at L2-L3 L3-L4 level.
== END ==
PROVIDERS: PCP Family Medicine; Visit Provider Family Medicine
DX: R20.2 Paresthesia of skin (principal); R20.0 Anesthesia of skin
CPT/HCPCS: 72148; 76376

== ENCOUNTER → 2023-08-03 10:30 | Outpatient (CLI) | payer MEDICARE, OTHER, SELFPAY ==
[2023-08-03 10:53] LABS: Basophils # 0.1 K/mm3 (0-0.2); Basophils % 0.8 % (0.1-2.0); Eosinophils # 0.1 K/mm3 (0.0-0.4); Eosinophils % 2.2 % (0.1-12.0); Hematocrit 43.8 % (37.0-47.0); Hemoglobin 14.9 g/dL (12.2-16.2); Lymphocytes # 1.4 K/mm3 (0.7-4.5); Lymphocytes % 22.1 % (10-50); Mean Corpuscular Hemoglobin 33.2 pg (27.0-31.2); Mean Corpuscular Volume 97.4 fl (81-99); Mean Platelet Volume 7.6 fl (7.4-10.4); Monocytes # 0.4 K/mm3 (0.1-1.0); Monocytes % 7.1 % (1.7-9.3); Neutrophils # 4.2 K/mm3 (1.8-7.8); Neutrophils % 67.8 % (37.0-80.0); Platelet Count 282 K/mm3 (142-424); Red Blood Count 4.49 M/mm3 (4.20-5.40); Red Cell Distribution Width 13.3 % (11.5-17.5); White Blood Count 6.2 K/mm3 (4.8-10.8)
[2023-08-03 10:53] LABS: Basophils % 0.6 % (0.1-2.0); Eosinophils # 0.1 K/mm3 (0.0-0.4); Eosinophils % 2.3 % (0.1-12.0); Hematocrit 43.9 % (37.0-47.0); Hemoglobin 14.7 g/dL (12.2-16.2); Lymphocytes # 1.3 K/mm3 (0.7-4.5); Lymphocytes % 22.4 % (10-50); Mean Corpuscular HGB Conc 33.5 g/dL (31.8-35.4); Mean Corpuscular Hemoglobin 32.6 pg (27.0-31.2); Mean Corpuscular Volume 97.4 fl (81-99); Monocytes # 0.4 K/mm3 (0.1-1.0); Monocytes % 6.9 % (1.7-9.3); Neutrophils # 4.1 K/mm3 (1.8-7.8); Neutrophils % 67.8 % (37.0-80.0); Platelet Count 289 K/mm3 (142-424); Red Cell Distribution Width 13.3 % (11.5-17.5)
[2023-08-03 11:23] LABS: Alanine Aminotransferase 29 U/L (12-78); Albumin Level 4.4 g/dl (3.5-5.0); Alkaline Phosphatase 93 U/L (38-126); Anion Gap 14.1 mEq/L (5-15); Aspartate Amino Transferase 35 U/L (14-36); Bilirubin,Direct 0.1 mg/dl (0.0-0.4); Bilirubin,Indirect 0.7 mg/dL (0.0-0.9); Bilirubin,Total 0.8 mg/dl (0.2-1.3); Bilirubin,Unconjugated 0.7 mg/dL (0.0-1.1); Blood Urea Nitrogen 13 mg/dl (7-17); Calcium 10.1 mg/dl (8.4-10.2); Carbon Dioxide 31 mmol/L (22.0-30.0); Chloride 102 mmol/L (98-107); Cholesterol 196 mg/dl (140-200); Estimated Glomerular Filt Rate 80 ml/min (>60); GFR (African American) 96 ML/MIN (>60); Glucose 106 mg/dl (74-100); HDL Cholesterol 66 mg/dl (40-60); Potassium 4.1 mmoL/L (3.5-5.1); Sodium 143 mmol/L (136-145); Total Protein,Serum 7.5 g/dl (6.3-8.2); Triglycerides 98 mg/dl (30-150); VLDL Cholesterol 20 mg/dL (0-40)
[2023-08-03 11:33] LABS: Direct LDL Cholesterol 97.13 mg/dL (100-129)
[2023-08-03 11:42] LABS: Free T4 (Free Thyroxine) 1.03 ng/dl (0.78-2.19)
[2023-08-03 11:53] LABS: Thyroid Stimulating Hormone 1.78 uIU/mL (0.465-4.68)
[2023-08-03 13:54] LABS: Alanine Aminotransferase 30 U/L (12-78); Albumin Level 4.4 g/dl (3.5-5.0); Albumin/Globulin Ratio 1.4 (1.1-1.8); Alkaline Phosphatase 93 U/L (38-126); Anion Gap 14.1 mEq/L (5-15); Aspartate Amino Transferase 37 U/L (14-36); Bilirubin,Total 0.8 mg/dl (0.2-1.3); Blood Urea Nitrogen 13 mg/dl (7-17); Carbon Dioxide 28 mmol/L (22.0-30.0); Chloride 103 mmol/L (98-107); Estimated Glomerular Filt Rate 80 ml/min (>60); GFR (African American) 96 ML/MIN (>60); Globulin 3.1 g/dL (1.3-3.2); Glucose 106 mg/dl (74-100); Potassium 4.1 mmoL/L (3.5-5.1); Sodium 141 mmol/L (136-145); Total Protein,Serum 7.5 g/dl (6.3-8.2)
== END ==
PROVIDERS: Physician Assistant; PCP Family Medicine; Visit Provider Family Medicine
DX: I25.10 Atherosclerotic heart disease of native coronary artery without angina pectoris (principal); I10 Essential (primary) hypertension; R06.00 Dyspnea, unspecified; E78.5 Hyperlipidemia, unspecified; Z86.73 Personal history of transient ischemic attack (TIA), and cerebral infarction without residual deficits; Z95.5 Presence of coronary angioplasty implant and graft
CPT/HCPCS: 36415; 80048; 80053; 80061; 80076; 84439; 84443; 85025

== ENCOUNTER 2024-07-14 10:55 | Outpatient (CLI) | payer MEDICARE, OTHER, SELFPAY ==
[2024-07-14 11:15] LABS: Basophils # 0.1 K/mm3 (0-0.2); Basophils % 1.1 % (0.1-2.0); Eosinophils # 0.1 K/mm3 (0.0-0.4); Eosinophils % 1.1 % (0.1-12.0); Hematocrit 42.1 % (37.0-47.0); Hemoglobin 13.9 g/dL (12.2-16.2); Lymphocytes # 1.6 K/mm3 (0.7-4.5); Mean Corpuscular HGB Conc 33.1 g/dL (31.8-35.4); Mean Corpuscular Hemoglobin 31.5 pg (27.0-31.2); Mean Corpuscular Volume 95.4 fl (81-99); Mean Platelet Volume 7.7 fl (7.4-10.4); Monocytes # 0.5 K/mm3 (0.1-1.0); Monocytes % 6.9 % (1.7-9.3); Neutrophils % 68.9 % (37.0-80.0); Platelet Count 362 K/mm3 (142-424); Red Blood Count 4.42 M/mm3 (4.20-5.40); Red Cell Distribution Width 13.6 % (11.5-17.5); White Blood Count 7.3 K/mm3 (4.8-10.8)
[2024-07-14 11:48] LABS: Albumin Level 4.3 g/dl (3.5-5.0); Chloride 105 mmol/L (98-107); Potassium 3.9 mmoL/L (3.5-5.1); Sodium 141 mmol/L (136-145)
[2024-07-14 11:50] LABS: Bilirubin,Unconjugated 0.7 mg/dL (0.0-1.1); Blood Urea Nitrogen 12 mg/dl (7-17); Estimated Glomerular Filt Rate 79 ml/min (>60); GFR (African American) 96 ML/MIN (>60)
[2024-07-14 11:51] LABS: Alanine Aminotransferase 24 U/L (12-78); Alkaline Phosphatase 103 U/L (38-126); Anion Gap 9.9 mEq/L (5-15); Aspartate Amino Transferase 29 U/L (14-36); Bilirubin,Direct 0.1 mg/dl (0.0-0.4); Bilirubin,Indirect 0.7 mg/dL (0.0-0.9); Bilirubin,Total 0.8 mg/dl (0.2-1.3); Calcium 9.9 mg/dl (8.4-10.2); Carbon Dioxide 30 mmol/L (22.0-30.0); Cholesterol 199 mg/dl (140-200); Glucose 119 mg/dl (74-100); Magnesium 1.8 mg/dl (1.6-2.3); Total Protein,Serum 7.2 g/dl (6.3-8.2); Triglycerides 94 mg/dl (30-150); VLDL Cholesterol 19 mg/dL (0-40)
[2024-07-14 11:52] LABS: Chol/HDL Ratio 3.4 (1-3.5); HDL Cholesterol 58 mg/dl (40-60)
[2024-07-14 12:03] LABS: Direct LDL Cholesterol 112.77 mg/dL (100-129)
[2024-07-14 12:07] LABS: Free T4 (Free Thyroxine) 1.01 ng/dl (0.78-2.19)
[2024-07-14 12:21] LABS: Thyroid Stimulating Hormone 1.59 uIU/mL (0.465-4.68)
== END 2024-07-14 23:59 | disposition home or self-care (01) ==
LOC: LAB 10:57
PROVIDERS: PCP Family Medicine; Visit Provider Internal Medicine
DX: I25.10 Atherosclerotic heart disease of native coronary artery without angina pectoris (principal); R94.31 Abnormal electrocardiogram [ECG] [EKG]; I10 Essential (primary) hypertension; Z95.5 Presence of coronary angioplasty implant and graft; E78.2 Mixed hyperlipidemia
CPT/HCPCS: 36415; 80048; 80061; 80076; 83735; 84439; 84443; 85025